=== PATIENT | male | born 1985 | race Hispanic/Latino ===

== ENCOUNTER 2025-07-08 23:21 | Emergency (ER) | payer SELFPAY ==
[~2025-07-08] VITALS: Ht 170.2 cm; Wt 67.6 kg
--- NOTE | 2025-07-08 23:36 | ERN ---
ED Note History of Present Illness Stated Complaint: SUICIDAL IDEATION Chief Complaint: Suicidal Ideation Time Seen by MD: 23:23 Time Seen by Midlevel: 23:23 Dictation: The patient is a 40-year-old male with a history of depression, cataracts who presents to the emergency department with complaints of suicidal ideations. Patient reports suicidal ideations has been going on for awhile. Reports today he tried to cut himself with a razor on his left wrist but it was not sharp enough. Patient denies any homicidal ideations, denies any hallucinations. Patient denies any other complaints. Allergies: Coded Allergies: No Known Allergies (Unverified Allergy, Unknown, 07/08/25) Past Medical History Past Medical History: Bipolar, Depression Surgical History: None RN Note Reviewed/Agreed w/PFSH: Yes Review of System Dictation Constitutional: Negative for fever,chills, and weight loss Eyes: Negative for injury, pain,redness, and discharge ENT: Negative for injury,pain or swelling Cardiovascular: Negative for chest pain, palpitations, and edema Respiratory: Negative for shortness of breath, cough, and wheezing, Abdomen/GI: Negative for abdominal pain, nausea, vomiting, diarrhea, and constipation Back: Negative for injury and pain : Negative for injury, bleeding and discharge MS/Extremity: Negative for injury and deformity Skin: Negative for rash, and discoloration Neuro: Negative for headache, weakness, numbness, tingling, and seizure Psych: Negative for homicidal ideation, and hallucinations positive for suicidal ideations Initial Vital Sign VS Vital Signs Date Time Temp Pulse Resp B/P (MAP) Pulse Ox O2 Delivery O2 Flow Rate FiO2 07/08/25 23:23 97.5 68 16 154/96 98 Room Air 0 07/09/25 00:01 21 Physical Exam Dictation Vital Signs reviewed General Appearance: Alert, oriented x 3, no acute distress, well developed, nourished. Head and Face: non-traumatic. Eyes: PERRL, pink conjunctivas, eyelid no trauma, anterior chamber with arcus senilis. Ears: Pinnas intact and no signs of trauma or erythema ear canals clear and no discharge TM no erythema Nose: No discharge, no bleeding. Oropharynx: Mouth normal, tongue pink. pharynx clear,no erythema, tonsils no exudates, no abscesses noted, mucous membrane moist Neck: Supple, non-tender, no thyromegaly, no masses, no JVD, no bruits Breast:Deferred Chest:No tenderness, no crepitus, no paradoxical movement, no retractions Lungs:Clear, well-ventilated, symmetric, no rales, no wheezing, no rhonchi, no stridor, good breath sounds bilaterally Heart: Regular rate, regular rhythm, no murmur, no gallops Vascular: no peripheral edema, Abdomen: Soft, positive bowel sounds, nondistended, no guarding, nontender, no rebound, no masses no hepatomegaly, no splenomegaly, no Giles's sign, no hernias. Rectal: Deferred Genital: Deferred Neurological: Normal speech, motor function intact, sensory function intact Musculoskeletal: Neck nontender, full range of motion, back nontender, full range of motion, Extremities: nontender, full range of motion Skin: Color pink, dry, no turgor, no rash, no lacerations, , no contusions. Small superficial abrasion to left risks, about 2 cm, no active bleeding Lymphatic: Deferred Results (Laboratory/Radiology) Laboratory/Radiology Laboratory Tests Test 07/08/25 23:32 07/08/25 23:49 White Blood Count 6.7 K/uL (4.8-10.8) Red Blood Count 4.61 MIL/uL (4.50-6.20) Hemoglobin 13.8 g/dL (14.0-18.0) L Hematocrit 41.9 % (42-54) L Mean Corpuscular Volume 90.9 fL (79-99) Mean Corpuscular Hemoglobin 29.9 pg (27.0-33.0) Mean Corpuscular Hemoglobin Concent 32.9 g/dL (32.0-36.0) Red Cell Distribution Width 12.7 % (11.0-15.5) Platelet Count 223 K/uL (130-400) Mean Platelet Volume 9.8 fL (7.5-10.5) Immature Granulocyte % (Auto) 0.1 % (0-1) Neutrophils (%) (Auto) 58.7 % (40.0-77.0) Lymphocytes (%) (Auto) 30.8 % (21.0-51.0) Monocytes (%) (Auto) 7.2 % (3.0-13.0) Eosinophils (%) (Auto) 3.1 % (0.0-8.0) Basophils (%) (Auto) 0.1 % (0.0-5.0) Neutrophils # (Auto) 3.9 K/uL (1.8-7.7) Lymphocytes # (Auto) 2.1 K/uL (1.0-4.8) Monocytes # (Auto) 0.5 K/uL (0.1-1.0) Eosinophils # (Auto) 0.21 K/uL (0.00-0.70) Basophils # (Auto) 0.01 K/uL (0.00-0.20) Absolute Immature Granulocyte (auto 0.01 K/uL (0-1) Nucleated Red Blood Cells 0.0 % (0.0-0.19) Sodium Level 143 mmol/L (136-145) Potassium Level 3.8 mmol/L (3.5-5.1) Chloride Level 104 mmol/L (101-111) Carbon Dioxide Level 31 mmol/L (21-32) Blood Urea Nitrogen 17 mg/dL (7-18) Creatinine 0.8 mg/dL (0.5-1.3) Glomerular Filtration Rate Calc 114 mL/min (>90) Random Glucose 104 mg/dL (70-105) Total Calcium 8.8 mg/dL (8.5-10.1) Salicylates Level < 2.8 mg/dL (2.8-20.0) L Acetaminophen Level < 1 mcg/mL (10-29) L Serum Alcohol < 3 mg/dL (0-10) Urine Opiates Screen NEGATIVE (NEGATIVE) Urine Barbiturates Screen NEGATIVE (NEGATIVE) Urine Phencyclidine Screen NEGATIVE (NEGATIVE) Urine Amphetamines Screen NEGATIVE (NEGATIVE) Urine Benzodiazepines Screen NEGATIVE (NEGATIVE) Urine Cocaine Screen NEGATIVE (NEGATIVE) Urine Marijuana (THC) Screen POSITIVE (NEGATIVE) H Labs Reviewed?: Yes ED Course ED Course Orders Procedure Category Date Status Time Cbc With Differential LAB 07/08/25 Complete 23:23 Basic Metabolic Panel LAB 07/08/25 Complete 23:23 Alcohol, Blood LAB 07/08/25 Complete 23:23 Acetaminophen LAB 07/08/25 Complete 23:23 Salicylate LAB 07/08/25 Complete 23:23 Drug Screen Urine LAB 07/08/25 Complete 23:23 Suicide Precautions CPOE 07/08/25 Transmitted 23:30 Vital Signs Date Time Temp Pulse Resp B/P (MAP) Pulse Ox O2 Delivery O2 Flow Rate FiO2 07/09/25 02:22 98.1 50 15 108/70 97 Room Air* 0 21 07/09/25 00:01 58 15 117/76 98 Room Air* 0 21 07/08/25 23:23 97.5 68 16 154/96 98 Room Air 0 Medical Decision Making MDM The patient is a 40-year-old male with a history of depression, cataracts who presents to the emergency department with complaints of suicidal ideations. Patient reports suicidal ideations has been going on for awhile. Reports today he tried to cut himself with a razor on his left wrist but it was not sharp enough. Patient denies any homicidal ideations, denies any hallucinations. Patient denies any other complaints. CBC showed no leukocytosis, normocytic anemia , chemistry showed no electrolyte imbalance, urine drug screen positive for marijuana. Patient was screened by [facility]. They report he does not meet inpatient continue area and will follow up up with him as outpatient. Spoke to patient and he reports he will follow up with them. Patient reports he just needed help with the his depression. Patient educated to return if anything worsen. Patient continues calm and cooperative. Differential diagnosis: Suicidal ideations, depression, laceration Need for hospitalization: Patient does not meet criteria for hospitalization. There are no social concerns with this patient. DX & DISP Disposition: Discharge Departure Impression: Primary Impression: Depressed Additional Impression: Marijuana abuse Condition: Stable Additional Instructions: Please make sure you follow up with [facility]. If anything changes or worsens please return to ER. FOLLOW-UP WITH PRIMARY CARE PROVIDER IN 1 TO 2 DAYS. TAKE MEDICATIONS DIRECTED HERE IN THE EMERGENCY ROOM. OKAY TO CONTINUE HOME MEDICATIONS UNLESS OTHERWISE DISCUSSED DURING YOUR VISIT IN THE EMERGENCY ROOM TODAY. RETURN TO YOUR NEAREST EMERGENCY ROOM IF SYMPTOMS WORSEN OR IF THERE IS NO IMPROVEMENT. CALL 911 IF YOU NEED IMMEDIATE ASSISTANCE. TAKE TYLENOL [id number] NEEDED AND IF NO CONTRAINDICATIONS ARE PRESENT. INCREASE ORAL HYDRATION. A WOUND CULTURE OR URINE CULTURE WAS ORDERED HERE IN THE EMERGENCY ROOM DEPARTMENT PLEASE FOLLOW-UP WITH PRIMARY CARE PROVIDER AND ADVISE THEM TO GET REPEAT PORTS FROM OUR FACILITY. IF YOU HAD ANY ANTELMO WRAP/SPLINTS THAT WERE APPLIED HERE, PLEASE DO NOT REMOVE THEM UNTIL YOU SEE YOUR PRIMARY CARE OR SPECIALTY. Referrals: NONE (PCP) Time of Disposition: 02:45 I have reviewed the case, and I agree with, Diagnosis and Plan [facility] Jul 08, 2025 23:36
[2025-07-08 23:45] LABS: IMMATURE GRANULOCYTE ABSOLUTE 0.01 K/uL (0-1); NUCLEATED RED BLOOD CELLS 0.0 % (0.0-0.19); PLATELET COUNT (AUTO) 223 K/uL (130-400); RED BLOOD CELL COUNT(AUTO) 4.61 MIL/uL (4.50-6.20); RED CELL DISTRIBUTION WIDTH 12.7 % (11.0-15.5); WHITE BLOOD COUNT (AUTO) 6.7 K/uL (4.8-10.8)
[2025-07-08 23:57] LABS: CREATININE 0.8 mg/dL (0.5-1.3); GLOMERULAR FILTR. RATE CALC 114 mL/min (>90); GLUCOSE,RANDOM 104 mg/dL (70-105); SODIUM SERUM 143 mmol/L (136-145); UREA NITROGEN, BLOOD 17 mg/dL (7-18)
[2025-07-09] LABS: ALCOHOL, BLOOD < 3 mg/dL (0-10)
[2025-07-09 00:07] LABS: AMPHET/METH SCREEN,URINE NEGATIVE (NEGATIVE); BARBITURATE SCREEN, URINE NEGATIVE (NEGATIVE); CANNABINOID SCREEN,URINE POSITIVE (NEGATIVE); COCAINE SCREEN,URINE NEGATIVE (NEGATIVE)
--- NOTE | 2025-07-09 00:20 | NUR ---
JOSIAS KHALIL CONTACTED TO INITIATE SCREENING FOR PATIENT, SPOKE WITH YUN, WILL CONTACT [employer] TECHNICIAN[employer]AL ESTATE PROCESSOR
--- NOTE | 2025-07-09 01:43 | NUR ---
SCREENER AT BEDSIDE
[2025-07-09 02:22] VITALS: BP 108/70; PULSE 50; RESP 15; TEMP 98; O2SAT 97
--- NOTE | 2025-07-09 02:37 | NUR ---
PER SCREENER, PATIENT DOES NOT MEET CRITERIA FOR INPATIENT SERVICES
--- NOTE | 2025-07-09 02:50 | NUR ---
PATIENT STATES HE LEFT HIS BACK PACK ON THE AMBULANCE, [facility] CONTACTED TO LOOK FOR PATIENTS BELONGINGS.
--- NOTE | 2025-07-09 03:13 | NUR ---
DISCHARGE INFORMATION GIVEN TO PATIENT, VERBALIZED UNDERSTANDING OF INSTRUCTIONS AND SIGNED THE SIGNATURE PAGE. STILL PENDING [facility] TO RETURN PATIENTS BELONGINGS, PATIENT ALLOWED TO WAIT IN ER.
== END 2025-07-09 03:13 | disposition home or self-care (01) ==
LOC: EDH 23:21
DX: F31.9 Bipolar disorder, unspecified (principal); F12.10 Cannabis abuse, uncomplicated; R45.851 Suicidal ideations
CPT/HCPCS: 99283; 80048; 80305; 85025; 36415; G0481